=== PATIENT | female | born 1935 | race Caucasian/White ===

== ENCOUNTER 2018-04-12 18:33 | Emergency (ER) | payer MEDICARE, OTHER ==
[2018-04-12] MEDS ORDERED: Lidocaine 1% (PF) 30 ML VIAL ONE (18:54)
[2018-04-12] MEDS ORDERED: Bupivacaine 0.5% 10 ML VIAL ONE (18:54)
--- NOTE | 2018-04-12 20:08 | RAD ---
RADIOGRAPH RIGHT WRIST 3 VIEWS: 04/12/18 at 6:32 p.m. HISTORY: 82-year-old female with bilateral traumatic wrist pain after fall. FINDINGS: There is diffuse osteopenia, which could obscure a fracture. The lateral view demonstrates focal angu lation at the dorsal aspect of the distal radial metaphysis. The AP and oblique views demonstrate que stionable nondisplaced linear lucencies of the distal radial metaphysis. No other potential fracture is identified. No high grade DJD. Alignment is normal. IMPRESSION: Questionable minimally displaced or nondisplaced distal radial metaphyseal fracture. Followup is elo mmended. POS: [facility]
--- NOTE | 2018-04-12 20:10 | RAD ---
RADIOGRAPH PELVIS 1 VIEW: 04/12/18 HISTORY: 82-year-old female status post pelvic trauma from fall. FINDINGS: Osteopenia. Pelvic ring appears to be grossly intact. No dislocation. IMPRESSION: No fracture identified. POS: [facility]
--- NOTE | 2018-04-12 20:11 | RAD ---
RADIOGRAPH LEFT HIP 2 VIEWS: 04/12/18 HISTORY: 82-year-old female status post traumatic injury to the left hip. FINDINGS: There is no fracture or dislocation. No high grade DJD. Diffuse osteopenia. IMPRESSION: No fracture identified. POS: [facility]
--- NOTE | 2018-04-12 20:18 | RAD ---
RADIOGRAPH LEFT WRIST 3 VIEWS: 04/12/18 at 6:31 p.m. HISTORY: 82-year-old female with traumatic bilateral wrist pain due to fall. FINDINGS: There is diffuse osteopenia. There is transverse fracture of the distal radial metaphysis with mild d orsal angulation of distal fragment, and approximately 30% bone width dorsal displacement of distal f ragment. No step-off of the radiocarpal articular surface is identified. It is uncertain whether or n ot there is a nondisplaced fracture at the base of the ulnar styloid process. IMPRESSION: Acute, traumatic Colles fracture. POS: [facility]
--- NOTE | 2018-04-12 20:48 | RAD ---
RADIOGRAPH CHEST AND RIGHT RIBS 4 VIEWS: 04/12/18 HISTORY: 82-year-old female status post acute traumatic injury to the right chest. FINDINGS: Diffuse severe osteopenia. This could obscure a mildly displaced or nondisplaced fracture. Mild defor mities of lateral aspects of right upper ribs may or may not represent old, healed fracture deformiti es. No definite, displaced acute fracture is identified. The visualized lung suh are essentially c lear. Ectasia and tortuosity of thoracic aorta. Otherwise, normal cardiomediastinal silhouette. Later al costophrenic angles are sharp. No evidence of pneumothorax. IMPRESSION: 1. Osteopenia. 2. No definite acute rib fracture identified. 3. No acute cardiopulmonary findings. POS: [facility]
--- NOTE | 2018-04-12 21:18 | RAD ---
RADIOGRAPH LEFT WRIST 3 VIEWS: 04/12/18 at 7:53 p.m. HISTORY: 82-year-old female with traumatic acute left wrist fracture. COMPARISON: 04/12/18 at 6:31 p.m. FINDINGS: There is mild interval improvement in the alignment of the distal radial metaphyseal fragment, now on ly approximately 20% posteriorly displaced. Interval resolution of the previously demonstrated mild angulation. The wrist is now in a splint. IMPRESSION: Status post reduction in the acute, traumatic, left Colles fracture, with improvement in alignment. POS: [facility]
== END 2018-04-12 20:29 | disposition home or self-care (01) ==
LOC: ERS 18:33
DX: S50.12XA Contusion of left forearm, initial encounter (principal); S50.11XA Contusion of right forearm, initial encounter; S20.211A Contusion of right front wall of thorax, initial encounter; S70.02XA Contusion of left hip, initial encounter; Z87.891 Personal history of nicotine dependence; W01.0XXA Fall on same level from slipping, tripping and stumbling without subsequent striking against object, initial encounter
CPT/HCPCS: 29125; 72170; J2001; J3490

== ENCOUNTER 2018-04-14 13:52 | Emergency (ER) | payer MEDICARE | END 2018-04-14 15:11 | disposition home or self-care (01) | LOC: ERS 13:52 | DX: S52.532D Colles' fracture of left radius, subsequent encounter for closed fracture with routine healing (principal); S52.531D Colles' fracture of right radius, subsequent encounter for closed fracture with routine healing; Z87.891 Personal history of nicotine dependence; Z79.899 Other long term (current) drug therapy | CPT/HCPCS: 29125 ==